=== PATIENT | female | born 1975 | race Caucasian/White ===

== ENCOUNTER 2021-09-24 12:49 | Observation (INO) ==
[2021-09-24] MEDS ORDERED: Morphine Sulfate 2 MG/ML SYRINGE SQ ONE (15:52)
[2021-09-24] MEDS ORDERED: 0.9 % Sodium Chloride 1,000 ML IVC SCH (16:00)
[2021-09-24] MEDS ORDERED: *HR* Succinylcholine 200 MG/10 ML VIAL IVP ONE (16:26)
[2021-09-24] MEDS ORDERED: *HR* Rocuronium Bromide 50 MG/5 ML VIAL ONE (16:26)
[2021-09-24] MEDS ORDERED: *HR* Propofol 200 MG/20 ML VIAL IVP ONE (16:26)
[2021-09-24] MEDS ORDERED: *HR* FentaNYL (PF) 100 MCG/2 ML VIAL ONE (16:26)
[2021-09-24] MEDS ORDERED: Lidocaine -MPF 2% 5 ML VIAL ONE (16:26)
[2021-09-24] MEDS ORDERED: *HR* Midazolam HCl 2 MG/2 ML VIAL ONE (16:26)
[2021-09-24] MEDS ORDERED: CefOXitin 1,000 MG VIAL ONE (16:35)
[2021-09-24] MEDS ORDERED: *HR* HYDROmorphone 2 MG TABLET PO PRN (17:01)
[2021-09-24] MEDS ORDERED: *HR* OxyCODONE Immed Rel 5 MG TABLET PO PRN (17:01)
[2021-09-24] MEDS ORDERED: Famotidine 20 MG/2 ML VIAL IVP ONE (17:01)
[2021-09-24] MEDS ORDERED: *HR* Labetalol 20 MG/4 ML SYRINGE IVP PRN (17:01)
[2021-09-24] MEDS ORDERED: Acetaminophen IV 1,000 MG/100 ML BAG IVPB ONE (17:03)
[2021-09-24] MEDS ORDERED: Famotidine 20 MG/2 ML VIAL ONE (17:04)
[2021-09-24] MEDS ORDERED: Ondansetron 4 MG/2 ML VIAL ONE (17:40)
[2021-09-24] MEDS ORDERED: Sugammadex Sodium 200 MG/2 ML VIAL IV ONE (18:05)
[2021-09-24] MEDS: *HR* HYDROmorphone PF 0.5 MG/0.5 ML SYRINGE IVP PRN ×2 (18:41→18:51)
[2021-09-24] MEDS ORDERED: Ringers Solution, Lactated 1,000 ML ONE (19:00)
[2021-09-24] MEDS ORDERED: *HR* OxyCODONE/APAP 5/325 TABLET PO PRN (19:42)
[2021-09-24] MEDS ORDERED: Morphine Sulfate 2 MG/ML SYRINGE IVP PRN (19:42)
[2021-09-24] MEDS ORDERED: Ondansetron 4 MG/2 ML VIAL IVP PRN (19:42)
[2021-09-25] MEDS: 0.9 % Sodium Chloride 1,000 ML IVC SCH ×3 (00:05→21:13)
[2021-09-25] MEDS: Piperacillin/Tazobactam 3.375 GM in 0.9 % Sodium Chloride Mini Bag 100 ML IVPB SCH ×3 (00:06→15:00)
[2021-09-25 08:27] LABS: Basophils % 0.3 %; Hematocrit 37.3 % (35.3-44.9); Immature Granulocytes % 0.5 % (0-4); Lymphocytes # 0.6 K/mcL (0.6-4.6); Lymphocytes % 4.3 %; Mean Corpuscular HGB Conc 33.2 g/dL (31.6-35.5); Mean Corpuscular Hemoglobin 31.5 pg (28.0-33.3); Mean Corpuscular Volume 94.7 fL (83.0-100.0); Mean Platelet Volume 10.3 fL (9.4-12.4); Monocytes # 0.5 K/mcL (0.0-1.3); Monocytes % 3.6 %; Platelet Count 257 K/mcL (140-400); Red Blood Count 3.94 M/mcL (3.82-4.97); Red Cell Distribution Width 12.7 % (11.5-14.5); Segmented Neutrophils % 91.3 %; White Blood Count 13.1 K/mcL (4.3-11.1)
[2021-09-25 08:31] LABS: Hemoglobin 12.4 g/dL (11.5-15.4)
[2021-09-25 08:51] LABS: BUN/Creatinine Ratio 13 (6-26); Blood Urea Nitrogen 12 mg/dL (6-20); Calcium 8.5 mg/dL (8.6-10.3); Carbon Dioxide 23 mEq/L (23-29); Chloride 109 mEq/L (98-107); Glucose 99 mg/dL (70-105); Osmolality,Calculated 286 (280-300); Phosphorous 2.5 mg/dL (2.7-4.5); Potassium 3.9 mEq/L (3.5-5.1); Sodium 138 mEq/L (136-145); eGFR For African Americans > 60 (> 60); eGFR For Non-African Americans > 60 (> 60)
[2021-09-25] MEDS ORDERED: hydrOXYzine pamoate 25 MG CAPSULE PO PRN (09:03)
[2021-09-25] MEDS: Ketorolac 30 MG/ML VIAL IVP SCH ×3 (09:53→20:09)
[2021-09-25] MEDS: Acetaminophen IV 1,000 MG/100 ML BAG IVPB SCH ×2 (09:53→17:52)
[2021-09-25] MEDS: *HR* Heparin 5,000 UNIT/ML VIAL SQ SCH ×2 (09:56→17:53)
[2021-09-25] MEDS: Nicotine 14 MG PATCH.TD24 TD SCH (09:57)
[2021-09-25] MEDS: Famotidine 20 MG/2 ML VIAL IVP SCH (17:52)
[2021-09-26] MEDS: Acetaminophen IV 1,000 MG/100 ML BAG IVPB SCH ×2 (00:30→06:14)
[2021-09-26] MEDS: Piperacillin/Tazobactam 3.375 GM in 0.9 % Sodium Chloride Mini Bag 100 ML IVPB SCH ×2 (00:30→07:41)
[2021-09-26] MEDS: Ketorolac 30 MG/ML VIAL IVP SCH ×2 (04:01→07:40)
[2021-09-26] MEDS: 0.9 % Sodium Chloride 1,000 ML IVC SCH ×2 (04:02→09:10)
[2021-09-26 05:12] LABS: Basophils # 0.1 K/mcL (0.0-0.2); Basophils % 0.7 %; Eosinophils # 0.5 K/mcL (0.0-0.6); Eosinophils % 5.6 %; Hematocrit 33.3 % (35.3-44.9); Immature Granulocytes % 0.3 % (0-4); Lymphocytes # 0.9 K/mcL (0.6-4.6); Lymphocytes % 9.5 %; Mean Corpuscular Hemoglobin 31.5 pg (28.0-33.3); Mean Corpuscular Volume 95.4 fL (83.0-100.0); Mean Platelet Volume 10.6 fL (9.4-12.4); Monocytes # 0.5 K/mcL (0.0-1.3); Monocytes % 4.9 %; Neutrophils # 7.4 K/mcL (1.6-8.9); Platelet Count 194 K/mcL (140-400); Red Blood Count 3.49 M/mcL (3.82-4.97); White Blood Count 9.4 K/mcL (4.3-11.1)
[2021-09-26 05:26] LABS: BUN/Creatinine Ratio 15 (6-26); Blood Urea Nitrogen 13 mg/dL (6-20); Calcium 7.8 mg/dL (8.6-10.3); Carbon Dioxide 20 mEq/L (23-29); Chloride 112 mEq/L (98-107); Glucose 87 mg/dL (70-105); Osmolality,Calculated 285 (280-300); Potassium 3.5 mEq/L (3.5-5.1); Sodium 138 mEq/L (136-145); eGFR For African Americans > 60 (> 60); eGFR For Non-African Americans > 60 (> 60)
[2021-09-26] MEDS: *HR* Heparin 5,000 UNIT/ML VIAL SQ SCH (06:13)
[2021-09-26] MEDS: Famotidine 20 MG/2 ML VIAL IVP SCH (06:13)
[2021-09-26] MEDS: Nicotine 14 MG PATCH.TD24 TD SCH (07:42)
[2021-09-26 08:39] VITALS: BP 126/72; PULSE 106; TEMP 98.5; O2SAT 93
== END 2021-09-26 12:50 | disposition home or self-care (01) ==
LOC: 3ANU
PROVIDERS: ADMIT Surgery; ATTEND Surgery